=== PATIENT | male | born 1960 | race Caucasian/White ===

== ENCOUNTER 2017-04-15 02:36 | Inpatient (IN) | payer BC ==
[~2017-04-15] VITALS: Ht 177.8 cm; Wt 113.0 kg
[2017-04-15] VITALS (8 sets, daily range): BP systolic 126–166; BP diastolic 70–102
[~2017-04-15 02:36] MED LIST: AUGMENTIN 875875 MG PO; MOTRIN800 MG PO
[2017-04-15 03:03] LABS: BASO % 0.4 % (0.0-1.0); EOS # 0.1 10*3/uL (0.0-0.4); EOS % 1.5 % (1.0-4.0); HEMATOCRIT 45.6 % (42.0-52.0); HEMOGLOBIN 15.9 g/dl (14.0-18.0); LYMPH # 3.5 10*3/uL (1.3-4.4); LYMPH % 43.1 % (27.0-41.0); MEAN CELL VOLUME 82.3 fl (80.0-94.0); MEAN CORPUSCULAR HGB 28.7 pg (27.0-31.0); MEAN CORPUSCULAR HGB CONC 34.9 g/dl (33.0-37.0); MEAN PLATELET VOLUME 10.1 fl (9.6-12.3); MONO # 0.8 10*3/uL (0.1-1.0); MONO % 9.7 % (3.0-9.0); NEUT # 3.7 10*3/uL (2.3-7.9); NEUT % 45.1 % (47.0-73.0); PLATELET COUNT AUTOMATED 183 10*3/uL (130-400); RED BLOOD COUNT 5.54 10*6/uL (4.50-5.90); RED CELL DISTRI WIDTH 13.2 % (0-14.5); WHITE BLOOD COUNT 8.2 10*3/uL (4.8-10.8)
[2017-04-15 03:13] LABS: ACT PARTIAL THROMBO TIME 23.9 SECONDS (20.8-31.5)
[2017-04-15 03:19] LABS: ALBUMIN 4.1 gm/dl (3.1-4.5); ALKALINE PHOSPHATASE 96 U/L (45-117); BUN 17 mg/dl (7-24); CHLORIDE 108 mmol/L (98-107); CREATININE 1.29 mg/dL (0.70-1.30); MAGNESIUM 2.2 mg/dL (1.5-2.1); POTASSIUM 3.5 mmol/L (3.5-5.1); SGOT/AST 22 IU/L (3-35); SGPT/ALT 27 U/L (12-78); SODIUM 143 mmol/L (136-145); TOTAL PROTEIN 7.8 gm/dL (6.4-8.2)
[2017-04-15 03:20] LABS: TROPONIN I 0.017 ng/ml (<0.045)
--- NOTE | 2017-04-15 04:45 | NUR ---
A 56, admitted to , under the services of PAMELA West DO with a diagnosis of CHEST PAIN. Chief complaint is CHEST PAIN. Patient arrived via bed from ER. Monitor applied. Initial assessment completed. Vital signs taken and recorded. PAMELA WEST DO notified of admission to the unit. Orders received. See assessment for past medical history, medications and allergies. Patient and/or family oriented to unit. [facility]. Clothing/patient valuable form completed. VERONICA AWAD
--- NOTE | 2017-04-15 05:06 | NUR ---
PATIENT STATED THAT HE TAKES NO HOME MEDS
--- NOTE | 2017-04-15 05:41 | NUR ---
DR ANTUNEZ ANSWERING SERVICE MADE AWARE OF NEW CONSULT
--- NOTE | 2017-04-15 05:44 | NUR ---
DR GILMAN CALLED, MADE AWARE OF NEW CONSULT. NO ORDERS RECEIVED. STATES HE WILL SEE HIM TODAY
[2017-04-15 06:28] LABS: THYROID STIM HORMONE (HS) 2.64 uIU/ml (0.358-4.75)
--- NOTE | 2017-04-15 07:30 | NUR ---
ASSUMED CARE OF PT AT THIS TIME, PT RESTING IN BED WITH EYES OPEN NO S/S OF DISTRESS, DENIES CHEST PAIN AT THIS TIME
[2017-04-15 09:08] LABS: VITAMIN D, 25-HYDROXY 31.8 ng/mL (30-100)
--- NOTE | 2017-04-15 09:41 | NUR ---
PT REFUSED LOVENOX INJECTION AT THIS TIME, EDUCATION PROVIDED ON THE IMPORTANCE OF MEDICATION, INEFFECTIVE AT THIS TIME.
--- NOTE | 2017-04-15 15:18 | NUR ---
PT RESTING IN BED WITH EYES CLOSED AT THIS TIME, RESPS EASY AND NONLABORED WITH NO S/S OF DISTRESS
--- NOTE | 2017-04-15 18:16 | NUR ---
PT LEFT AMA. NURSING SURGICAL [facility]ACE [employer]KER AND DR. SEPULVEDA NOTIFIED.
--- NOTE | 2017-04-17 08:00 | NUR ---
[facility] OFFICE NOTIFIED OF PT DISCHARGE AND NEED FOR OUT PT SCHEDULED STRESS TEST. COPY OF ORDER GIVEN TO
== END 2017-04-15 18:16 | disposition left against medical advice (07) | DRG 391 ==
LOC: ED 02:36 → 4E 03:55
PROVIDERS: Emergency Medicine; Internal Medicine; ADMIT Internal Medicine
DX: K21.9 Gastro-esophageal reflux disease without esophagitis (principal); J18.9 Pneumonia, unspecified organism; E87.8 Other disorders of electrolyte and fluid balance, not elsewhere classified; E83.41 Hypermagnesemia; R07.89 Other chest pain; E80.6 Other disorders of bilirubin metabolism; E78.1 Pure hyperglyceridemia; Z82.49 Family history of ischemic heart disease and other diseases of the circulatory system; Z82.3 Family history of stroke; Z90.49 Acquired absence of other specified parts of digestive tract